=== PATIENT | female | born 1965 | race American Indian/Alaskan Native ===

== ENCOUNTER 2021-08-21 07:09 | Emergency (ER) | payer BC ==
[2021-08-21] MEDS ORDERED: dexAMETHasone 20 MG/5 ML VIAL IM ONE (07:31)
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
[2021-08-21 07:41] VITALS: BP 155/91
--- NOTE | 2021-08-21 09:03 | XRay Report ---
LEFT SHOULDER 3 VIEWS INDICATION: Left shoulder pain. COMPARISON: None. IMPRESSION: Normal bone mineralization. No acute osseous abnormality, bone lesion or significant joel int pathology. There is a 4 mm calcific fragment along the superior glenoid rim which probably repres ents chronic sequela of an old labral tear. If further evaluation is needed, MRI left shoulder arthro gram should provide the most information. Signer Name: Gutierrez Kelly Jr, MD Signed: 08/21/2021 8:58 AM Workstation Name: [id number]
== END 2021-08-21 09:27 | disposition home or self-care (01) ==
LOC: ED 07:09
DX: M25.512 Pain in left shoulder (principal); Z88.8 Allergy status to other drugs, medicaments and biological substances
CPT/HCPCS: 73030; 96372; 99283; J1100